=== PATIENT | female | born 1935 | race Caucasian/White ===

== ENCOUNTER 2018-08-26 07:22 | Day surgery (SDC) | payer OTHER, BC ==
[2018-08-25 08:51] VITALS: BMI 36.6
[2018-08-26 09:35] VITALS: TEMP 97.5
[2018-08-26 10:37] VITALS: BP 105/82; PULSE 55
--- NOTE | 2018-08-29 16:44 | PATH ---
Surgical Pathology Report Patient Name: CHERI ELIZABETH [facility]. Rec. #: [id number] /Age/Gender: 1935 (Age: 82) / F Account: [id number] Location: U-ENDOSCOPY Taken: 08/26/2018 Received: 08/26/2018 Reported: 08/29/2018 Physicians: Jeffry Emery M.D. Specimen(s) Received A: BX 2ND PORTION DUODENUM AND DUODENAL BULB B: BX ANTRUM Clinical History Anemia, history of gastric polyp, colon screening Postoperative diagnosis: Large hiatal hernia, colon diverticuli Final Diagnosis A. 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 NO HISTOLOGIC EVIDENCE OF CELIAC DISEASE. B. ANTRUM, BIOPSY: GASTRIC MUCOSA WITH REACTIVE GASTROPATHY. IMMUNOSTAIN FOR H. PYLORI IS NEGATIVE. NEGATIVE FOR INTESTINAL METAPLASIA. Electronically Signed Yeison Kinsey M.D. Gross Description A. Received in formalin, labeled "biopsy second portion of duodenum and duodenal bulb" are 4 gibbons, irregular portions of soft tissue ranging from 0.1-0.5 cm. in greatest dimension. The specimens are submitted in toto in one cassette. B. Received in formalin, labeled "biopsy antrum" are 4 gibbons, irregular portions of soft tissue ranging from 0.3-0.4 ] cm. in greatest dimension. The specimens are submitted in toto in one cassette. DL/08/26/2018 saudi08/26/2018
== END 2018-08-26 10:37 | disposition home or self-care (01) ==
LOC: JASU-ENDO 07:22
PROVIDERS: ATTEND Internal Medicine Gastroenterology
PROC: 0DB98ZX Excision of Duodenum, Via Natural or Artificial Opening Endoscopic, Diagnostic (ICD-10-PCS; 2018-08-26)
PROC: 0DB68ZX Excision of Stomach, Via Natural or Artificial Opening Endoscopic, Diagnostic (ICD-10-PCS; 2018-08-26)
PROC: 0DJD8ZZ Inspection of Lower Intestinal Tract, Via Natural or Artificial Opening Endoscopic (ICD-10-PCS; principal; 2018-08-26 09:00)
DX: Z12.11 Encounter for screening for malignant neoplasm of colon (principal); D64.9 Anemia, unspecified; K92.1 Melena; K57.30 Diverticulosis of large intestine without perforation or abscess without bleeding; K64.8 Other hemorrhoids; K44.9 Diaphragmatic hernia without obstruction or gangrene
CPT/HCPCS: 43239; G0121; 88305-TC; 88342-TC

== ENCOUNTER 2021-07-28 05:02 | Day surgery (SDC) | payer OTHER, BC ==
[2021-07-25 15:32] VITALS: BMI 33.6
== END 2021-07-28 13:38 | disposition home or self-care (01) ==
LOC: JASU-ENDO 05:02
PROVIDERS: ATTEND Internal Medicine Cardiovascular Disease
DX: Z53.8 Procedure and treatment not carried out for other reasons (principal)
CPT/HCPCS: 93005; 93010

== ENCOUNTER 2023-03-04 11:04 | Day surgery (SDC) | payer OTHER, BC ==
[2023-03-04] MEDS ORDERED: FERRIC CARBOXYMALTOSE 750 MG in SODIUM CHLORIDE 250 ML IVPB ONE (11:30)
[2023-03-04 16:27] VITALS: BP 115/56; PULSE 90; RESP 18; TEMP 98.4
== END 2023-03-04 16:10 | disposition home or self-care (01) ==
LOC: FINFUSION 11:04 → FM/S 11:05 → FINFUSION 16:10
PROVIDERS: ATTEND Family Medicine
PROC: 3E033GC Introduction of Other Therapeutic Substance into Peripheral Vein, Percutaneous Approach (ICD-10-PCS; principal; 2023-03-04)
DX: D50.9 Iron deficiency anemia, unspecified (principal)
CPT/HCPCS: 96365; J1439

== ENCOUNTER 2023-03-11 11:17 | Day surgery (SDC) | payer OTHER, BC ==
[2023-03-11 11:28] VITALS: RESP 18; TEMP 98.6
[2023-03-11] MEDS ORDERED: FERRIC CARBOXYMALTOSE 750 MG in SODIUM CHLORIDE 250 ML IVPB ONE (11:30)
[2023-03-11 13:20] VITALS: BP 146/52; PULSE 64
== END 2023-03-11 13:21 | disposition home or self-care (01) ==
LOC: FINFUSION 11:17 → FM/S 11:20 → FINFUSION 13:21
PROVIDERS: ATTEND Family Medicine
PROC: 3E033GC Introduction of Other Therapeutic Substance into Peripheral Vein, Percutaneous Approach (ICD-10-PCS; principal; 2023-03-11)
DX: D50.9 Iron deficiency anemia, unspecified (principal)
CPT/HCPCS: 96365; J1439

== ENCOUNTER 2023-04-16 04:36 | Day surgery (SDC) | payer OTHER, BC ==
[2023-04-14 08:22] VITALS: BMI 31.4
[2023-04-16 10:19] VITALS: TEMP 97
[2023-04-16 10:43] VITALS: RESP 20
[2023-04-16 11:06] VITALS: BP 149/87; PULSE 92
== END 2023-04-16 11:19 | disposition home or self-care (01) ==
LOC: JASU-ENDO 04:36
PROVIDERS: ATTEND Internal Medicine Gastroenterology
PROC: 0DB98ZX Excision of Duodenum, Via Natural or Artificial Opening Endoscopic, Diagnostic (ICD-10-PCS; 2023-04-16)
PROC: 0DB68ZX Excision of Stomach, Via Natural or Artificial Opening Endoscopic, Diagnostic (ICD-10-PCS; 2023-04-16)
PROC: 0DJD8ZZ Inspection of Lower Intestinal Tract, Via Natural or Artificial Opening Endoscopic (ICD-10-PCS; principal; 2023-04-16 10:00)
DX: Z12.11 Encounter for screening for malignant neoplasm of colon (principal); D50.9 Iron deficiency anemia, unspecified; K57.30 Diverticulosis of large intestine without perforation or abscess without bleeding; K29.50 Unspecified chronic gastritis without bleeding; K44.9 Diaphragmatic hernia without obstruction or gangrene
CPT/HCPCS: 43239; G0121; 88305-TC; 88342-TC

== ENCOUNTER 2023-08-02 11:28 | Emergency (ER) | payer OTHER, BC ==
[2023-08-02 11:42] VITALS: BMI 29.2
[2023-08-02] MEDS ORDERED: ACETAMINOPHEN 500 MG TABLET (FP) PO ONE (13:16)
[2023-08-02 13:51] LABS: INR 1.96 (0.83-1.09); PROTHROMBIN TIME (PATIENT) 22.6 SEC (9.7-13.0)
[2023-08-02 13:54] LABS: ACTIVATED PTT 36.1 SECONDS (25.2-36.5)
[2023-08-02] MEDS ORDERED: ACETAMINOPHEN 325 MG TABLET (FP) ONE (13:56)
[2023-08-02 14:14] LABS: POTASSIUM 5.3 mmol/L (3.5-5.1)
[2023-08-02 14:16] LABS: ALBUMIN 3.6 g/dl (3.4-5.0); BLOOD UREA NITROGEN 34.1 mg/dL (7-18); CALCIUM 9.4 mg/dL (8.5-10.1); MAGNESIUM 2.2 mg/dL (1.8-2.4)
[2023-08-02 14:19] LABS: CREATININE 2.4 mg/dL (0.55-1.3)
[2023-08-02 14:21] LABS: BILIRUBIN,TOTAL 0.8 mg/dL (0.2-1); TOT PROT 6.9 g/dl (6.4-8.2)
[2023-08-02 17:40] VITALS: BP 127/73; PULSE 82; RESP 22; TEMP 98.6
== END 2023-08-02 17:56 | disposition home or self-care (01) ==
LOC: JER 11:28
DX: R07.89 Other chest pain (principal); R09.82 Postnasal drip; R05.9 Cough, unspecified; M54.9 Dorsalgia, unspecified; Z86.79 Personal history of other diseases of the circulatory system; Z20.822 Contact with and (suspected) exposure to COVID-19
CPT/HCPCS: 0241U-QW; 71046-TC-FY; 80053; 83735; 84484; 85610; 85730; 93005; 93010; 99285-25

== ENCOUNTER 2024-02-12 07:33 | Emergency (ER) | payer OTHER, BC ==
[2024-02-12 08:12] VITALS: BP 141/87; PULSE 80; RESP 16; TEMP 97.3; BMI 29.2
[2024-02-12] MEDS ORDERED: LIDOCAINE 4% PATCH TP ONE (08:26)
[2024-02-12] MEDS ORDERED: ACETAMINOPHEN INJECTION 100 ML IVPB ONE (08:26)
[2024-02-12] MEDS: morphine SULFATE 4 MG/ML VIAL IVPUSH ONE (08:41)
[2024-02-12] MEDS: ACETAMINOPHEN 1000 MG/100 ML BAG IVPB ONE (08:41)
[2024-02-12] MEDS: LIDOCAINE 5% TOPICAL PATCH TP ONE (08:42)
[2024-02-12] MEDS: LIDOCAINE 4% PATCH TP ONE (08:42)
[2024-02-12] MEDS ORDERED: GABAPENTIN 100 MG CAPSULE ONE (10:14)
[2024-02-12] MEDS: GABAPENTIN 100 MG CAPSULE PO ONE (10:18)
[2024-02-12] MEDS ORDERED: LIDOCAINE PATCH REMOVAL MC SCH (22:00)
== END 2024-02-12 10:33 | disposition home or self-care (01) ==
LOC: JER 07:33
PROC: 3E033NZ Introduction of Analgesics, Hypnotics, Sedatives into Peripheral Vein, Percutaneous Approach (ICD-10-PCS; principal; 2024-02-12)
PROC: 3E033GC Introduction of Other Therapeutic Substance into Peripheral Vein, Percutaneous Approach (ICD-10-PCS; 2024-02-12)
DX: M54.41 Lumbago with sciatica, right side (principal); G89.29 Other chronic pain; M54.16 Radiculopathy, lumbar region
CPT/HCPCS: 99284-25; J0131

== ENCOUNTER 2024-02-18 04:47 | Day surgery (SDC) | payer OTHER, BC ==
[2024-02-15 11:31] VITALS: BMI 29.2
[2024-02-18] MEDS ORDERED: LIDOCAINE HCL/PF 1% SDV 5ML VIAL ONE (07:14)
[2024-02-18] MEDS ORDERED: DEXAMETHASONE SOD PHOSPHATE 10 MG/1 ML VIAL ONE (07:14)
[2024-02-18] MEDS ORDERED: ACETAMINOPHEN 500 MG TABLET (FP) PO PRN (10:42)
[2024-02-18] MEDS: DEXAMETHASONE SOD PHOSPHATE 10 MG/1 ML VIAL IVPUSH ONE (15:49)
[2024-02-18] MEDS: IOHEXOL 180 MG/1 ML ML IJ ONE (15:49)
[2024-02-18] MEDS: LIDOCAINE HCL 1% PRESERVATIVE FREE - 30ML VIAL IJ ONE (15:49)
[2024-02-18 16:08] VITALS: BP 125/67; PULSE 78; RESP 18; TEMP 97.8
== END 2024-02-18 16:45 | disposition home or self-care (01) ==
LOC: JASU-SURG 04:47
PROVIDERS: ATTEND Pain Medicine Pain Medicine
PROC: 3E0R3BZ Introduction of Anesthetic Agent into Spinal Canal, Percutaneous Approach (ICD-10-PCS; 2024-02-18)
PROC: 3E0R33Z Introduction of Anti-inflammatory into Spinal Canal, Percutaneous Approach (ICD-10-PCS; principal; 2024-02-18 16:15)
DX: M48.061 Spinal stenosis, lumbar region without neurogenic claudication (principal); M54.16 Radiculopathy, lumbar region
CPT/HCPCS: 76000-TC-FY; J1100

== ENCOUNTER 2024-02-24 12:07 | Emergency (ER) | payer OTHER, BC ==
[2024-02-24 12:22] VITALS: BP 133/89; PULSE 95; RESP 18; TEMP 97.6; BMI 29.8
[2024-02-24] MEDS: ACETAMINOPHEN 325 MG TABLET (FP) PO ONE (13:00)
[2024-02-24] MEDS ORDERED: ACETAMINOPHEN 325 MG TABLET (FP) ONE (13:01)
== END 2024-02-24 13:46 | disposition home or self-care (01) ==
LOC: FER 12:07
DX: M79.604 Pain in right leg (principal)
CPT/HCPCS: 73590-TC-RT-FY; 73610-TC-RT-FY; 99283-25

== ENCOUNTER 2024-05-03 06:47 | Emergency (ER) | payer OTHER, BC ==
[2024-05-03 07:01] VITALS: TEMP 98.8; BMI 28.5
[2024-05-03] MEDS ORDERED: ACETAMINOPHEN 325 MG TABLET (FP) ONE (07:34)
[2024-05-03] MEDS: ACETAMINOPHEN 500 MG TABLET (FP) PO ONE (07:44)
[2024-05-03] MEDS ORDERED: morphine SULFATE 4 MG/ML VIAL ONE (07:47)
[2024-05-03] MEDS: morphine CARPU-JECT 4 MG/1 ML DISP.SYRIN IVPUSH ONE (08:14)
[2024-05-03 08:39] LABS: BASO % 0.4 % (0-2.0); EOS % 2.5 % (0-4.5); HEMATOCRIT 40.1 % (32.4-45.2); HEMOGLOBIN 13.2 GM/dL (10.7-15.3); LYMPH % 17.1 % (8-40); MCH 31.6 pg (25.7-33.7); MCHC 32.9 g/dl (32.0-36.0); MEAN CELL VOLUME 96.2 fl (80-96); MEAN PLT VOLUME 7.5 fl (7.5-11.1); MONO % 8.5 % (3.8-10.2); NEUT % 71.5 % (42.8-82.8); PLATELET COUNT 337 10^3/uL (134-434); RBC 4.17 M/mm3 (3.60-5.2); RDW 15.1 % (11.6-15.6); WHITE BLOOD COUNT 9.5 K/mm3 (4.0-10.0)
[2024-05-03 08:41] LABS: POTASSIUM 4.8 mmol/L (3.5-5.1)
[2024-05-03 08:43] LABS: ALBUMIN 3.9 g/dl (3.4-5.0); CALCIUM 9.7 mg/dL (8.5-10.1)
[2024-05-03 08:44] LABS: BLOOD UREA NITROGEN 38.7 mg/dL (7-18)
[2024-05-03 08:46] LABS: CREATININE 1.6 mg/dL (0.55-1.3)
[2024-05-03 08:48] LABS: BILIRUBIN,TOTAL 1.1 mg/dL (0.2-1); TOT PROT 6.8 g/dl (6.4-8.2)
[2024-05-03 11:05] VITALS: BP 135/94; PULSE 96; RESP 16
== END 2024-05-03 11:05 | disposition home or self-care (01) ==
LOC: JER 06:47
PROC: 3E033NZ Introduction of Analgesics, Hypnotics, Sedatives into Peripheral Vein, Percutaneous Approach (ICD-10-PCS; principal; 2024-05-03)
DX: M54.50 Low back pain, unspecified (principal); M79.661 Pain in right lower leg; G89.29 Other chronic pain
CPT/HCPCS: 36415; 80053; 85025; 99284-25

== ENCOUNTER 2024-05-04 05:23 | Emergency (ER) | payer OTHER, BC ==
[2024-05-04 05:39] VITALS: BMI 32.2
[2024-05-04 12:36] VITALS: BP 118/82; PULSE 93; RESP 16; TEMP 97.5
== END 2024-05-04 12:37 | disposition home or self-care (01) ==
LOC: JER 05:23
DX: M54.41 Lumbago with sciatica, right side (principal); M54.42 Lumbago with sciatica, left side; G89.29 Other chronic pain
CPT/HCPCS: 99283-25

== ENCOUNTER 2024-05-11 04:08 | Day surgery (SDC) | payer OTHER, BC ==
[2024-05-09 11:50] VITALS: BMI 27.4
[2024-05-11] MEDS ORDERED: LIDOCAINE HCL/PF 1% SDV 5ML VIAL ONE (07:15)
[2024-05-11] MEDS ORDERED: DEXAMETHASONE SOD PHOSPHATE 10 MG/1 ML VIAL ONE (07:16)
[2024-05-11 10:35] VITALS: TEMP 98.2
[2024-05-11] MEDS: IOHEXOL 180 MG/1 ML ML IJ ONE ×2 (12:19)
[2024-05-11] MEDS: LIDOCAINE 1% P/F 10 MG/ML VIAL INF ONE ×2 (12:19)
[2024-05-11] MEDS: DEXAMETHASONE SOD PHOSPHATE 10 MG/1 ML VIAL IVPUSH ONE ×2 (12:19)
[2024-05-11 13:36] VITALS: BP 125/82; PULSE 68; RESP 20
[2024-05-11] MEDS ORDERED: ACETAMINOPHEN 500 MG TABLET (FP) PO PRN (17:28)
== END 2024-05-11 13:05 | disposition home or self-care (01) ==
LOC: JASU-SURG 04:08
PROVIDERS: ATTEND Pain Medicine Pain Medicine
PROC: 3E0R3BZ Introduction of Anesthetic Agent into Spinal Canal, Percutaneous Approach (ICD-10-PCS; 2024-05-11)
PROC: 3E0R33Z Introduction of Anti-inflammatory into Spinal Canal, Percutaneous Approach (ICD-10-PCS; principal; 2024-05-11 12:00)
DX: M48.061 Spinal stenosis, lumbar region without neurogenic claudication (principal); M54.16 Radiculopathy, lumbar region
CPT/HCPCS: 76000-TC-FY; J1100

== ENCOUNTER 2024-06-09 04:57 | Day surgery (SDC) | payer OTHER, BC ==
[2024-06-07 17:46] VITALS: BMI 27.4
[2024-06-09] MEDS ORDERED: LIDOCAINE HCL/PF 1% SDV 5ML VIAL ONE (07:07)
[2024-06-09] MEDS: LIDOCAINE 1% P/F 10 MG/ML VIAL PNB ONE ×2 (09:05)
[2024-06-09 09:36] VITALS: BP 134/84; PULSE 80; RESP 16; TEMP 98
[2024-06-09] MEDS ORDERED: ACETAMINOPHEN 500 MG TABLET (FP) PO PRN (13:37)
== END 2024-06-09 10:18 | disposition home or self-care (01) ==
LOC: JASU-SURG 04:57
PROVIDERS: ATTEND Pain Medicine Pain Medicine
PROC: 01HY3MZ Insertion of Neurostimulator Lead into Peripheral Nerve, Percutaneous Approach (ICD-10-PCS; principal; 2024-06-09 08:30)
DX: G89.4 Chronic pain syndrome (principal)
CPT/HCPCS: 64555; C1778

== ENCOUNTER 2024-07-13 04:30 | Day surgery (SDC) | payer OTHER, BC ==
[2024-07-12 13:38] VITALS: BMI 27.3
[2024-07-13] MEDS ORDERED: LIDOCAINE HCL/PF 1% SDV 5ML VIAL ONE (07:39)
[2024-07-13] MEDS: LIDOCAINE HCL 1% PRESERVATIVE FREE - 30ML VIAL IJ ONE (11:59)
[2024-07-13 12:35] VITALS: BP 113/73; PULSE 84; RESP 20; TEMP 97.8
== END 2024-07-13 13:09 | disposition home or self-care (01) ==
LOC: JASU-SURG 04:30
PROVIDERS: ATTEND Pain Medicine Pain Medicine
PROC: 01HY3MZ Insertion of Neurostimulator Lead into Peripheral Nerve, Percutaneous Approach (ICD-10-PCS; principal; 2024-07-13 11:15)
DX: G89.4 Chronic pain syndrome (principal); M54.31 Sciatica, right side
CPT/HCPCS: 64555; C1778

== ENCOUNTER 2024-12-08 04:05 | Day surgery (SDC) | payer OTHER, BC ==
[2024-12-08] MEDS ORDERED: LIDOCAINE HCL/PF 1% SDV 5ML VIAL ONE (07:12)
[2024-12-08] MEDS ORDERED: MIDAZOLAM HCL 2 MG/2 ML SINGLE DOSE VIAL ONE (10:51)
[2024-12-08] MEDS: ceFAZolin SODIUM 1 GM VIAL IVPB ONE (10:53)
[2024-12-08] MEDS: LIDOCAINE HCL 1% PRESERVATIVE FREE - 30ML VIAL IJ ONE ×3 (11:09→11:23)
[2024-12-08] MEDS: LIDOCAINE HCL/PF 2% SDV 5ML VIAL SQ ONE ×2 (11:23)
[2024-12-08 12:31] VITALS: RESP 16; TEMP 97.6
[2024-12-08 13:09] VITALS: BP 126/70; PULSE 70
[2024-12-08] MEDS ORDERED: ACETAMINOPHEN 500 MG TABLET (FP) PO PRN (15:20)
== END 2024-12-08 13:12 | disposition home or self-care (01) ==
LOC: JASU-SURG 04:05
PROVIDERS: ATTEND Pain Medicine Pain Medicine
PROC: 00HV3MZ Insertion of Neurostimulator Lead into Spinal Cord, Percutaneous Approach (ICD-10-PCS; principal; 2024-12-08 10:30)
DX: M54.16 Radiculopathy, lumbar region (principal); G89.29 Other chronic pain
CPT/HCPCS: 63650; C1897; 76000-TC-FY; 82010

== ENCOUNTER 2025-01-12 05:13 | Day surgery (SDC) | payer OTHER, BC ==
[2025-01-09 18:01] VITALS: BMI 27.3
[2025-01-12] MEDS ORDERED: ACETAMINOPHEN 500 MG TABLET (FP) PO PRN (08:33)
[2025-01-12] MEDS ORDERED: VANCOMYCIN 1,000 MG VIAL (RESTRICTED TO ID ONLY) ONE (11:39)
[2025-01-12] MEDS ORDERED: ONDANSETRON 4 MG/2 ML VIAL ONE (12:22)
[2025-01-12] MEDS ORDERED: ceFAZolin SODIUM 1 GM VIAL ONE (12:22)
[2025-01-12] MEDS ORDERED: PROPOFOL 20 ML ONE ×2 (12:23→14:08)
[2025-01-12] MEDS ORDERED: MIDAZOLAM HCL 2 MG/2 ML SINGLE DOSE VIAL ONE (12:23)
[2025-01-12] MEDS ORDERED: ONDANSETRON 4 MG/2 ML VIAL IVPUSH PRN (12:36)
[2025-01-12] MEDS ORDERED: ESMOLOL HCL 100,000 MCG/10 ML VIAL ONE (13:12)
[2025-01-12] MEDS: LIDOCAINE HCL 1% PRESERVATIVE FREE - 30ML VIAL IJ ONE (13:27)
[2025-01-12] MEDS: LIDOCAINE HCL/PF 2% SDV 5ML VIAL INF ONE (13:35)
[2025-01-12] MEDS ORDERED: LABETALOL HCL 20 MG/4 ML VIAL ONE (14:06)
[2025-01-12] MEDS: LACTATED RINGERS SOLUTION 1,000 ML IV SCH (15:35)
[2025-01-12 16:21] VITALS: PULSE 98
[2025-01-12 16:46] VITALS: RESP 18
[2025-01-12 17:06] VITALS: TEMP 97.4
[2025-01-12 18:12] VITALS: BP 130/70
== END 2025-01-12 18:00 | disposition home or self-care (01) ==
LOC: JASU-SURG 05:13
PROVIDERS: ATTEND Pain Medicine Pain Medicine
PROC: 00HU3MZ Insertion of Neurostimulator Lead into Spinal Canal, Percutaneous Approach (ICD-10-PCS; 2025-01-12)
PROC: 0JH73BZ Insertion of Single Array Stimulator Generator into Back Subcutaneous Tissue and Fascia, Percutaneous Approach (ICD-10-PCS; principal; 2025-01-12 13:27)
DX: G89.4 Chronic pain syndrome (principal); M54.16 Radiculopathy, lumbar region; M54.50 Low back pain, unspecified
CPT/HCPCS: 63650; 63685; C1778; L8679; 76000-TC-FY; 82962; 94760; C1767